=== PATIENT | male | born 1975 | race Caucasian/White ===

== ENCOUNTER 2019-07-14 12:11 | Emergency (ER) | payer BC, OTHER ==
[2019-07-14] MEDS ORDERED: Ketorolac 60 MG/2 ML SDV IM ONE (12:44)
--- NOTE | 2019-07-14 12:52 | EDM.PDOC ---
ED HPI GENERAL MEDICAL PROBLEM - General Chief Complaint: Back Pain or Injury Stated Complaint: LOWER RT BACK PAIN Time Seen by Provider: 07/14/19 12:17 - History of Present Illness INITIAL COMMENTS - FREE TEXT/NARRATIVE: 44-year-old male with no past medical history presents with right lower back pain for 3 weeks. Pain is described as sharp, comes and goes, associated with walking and movement, and radiates to the right foot, described as "lightening bolt" sensation. He has taken OTC Aleve with no relief. Denies fever, chills, urinary or fecal incontinence, trauma, IVDA, recent back surgeries, lower extremity numbness or weakness. ROS: A 10-point review of systems, other than pertinent positives and negatives as stated per HPI, is otherwise negative PHYSICAL EXAM General: AOx4, GCS = 15, mid distress HEENT: dry mucous membrane Neck: supple, no meningismus, no Kernig or Brudzinski Cardiac: S1S2 RRR Respiratory: CTAB, no crackles or rales, no wheezing Abdomen: Soft, nontender, no rebound or guarding, nondistended, no pulsatile mass. Back: nontender to C/T/L-spine. Right lumbar paraspinal tenderness. Positive straight leg raise. Musculoskeletal: NVI distally, no deformity Neuro: No focal deficits. MEDICAL DECISION MAKING: I reviewed the patients past medical records, lab and radiographic findings. I discussed the case with family members. My differential diagnosis included: Low back strain, sciatica. Patient's back pain is suggestive of musculoskeletal strain. There are no complaints of urinary or fecal incontinence, focal numbness or weakness. The patient has a normal gait in the ER. There is no evidence of fever, IV drug use, recent back surgery, or immunocompromised state. I do not suspect caude equine syndrome or cord compression which would warrant further imaging. Right Back Pain Score (Numeric/FACES): 4 - Related Data Allergies Allergy/AdvReac Type Severity Reaction Status Date / Time No Known Allergies Allergy Verified 07/14/19 12:30 Home Meds: Home Meds Cyclobenzaprine [Flexeril] 10 mg PO TID #20 tab 07/14/19 [Rx] Ibuprofen 800 mg PO Q6HR PRN #14 tablet 07/14/19 [Rx] Past Medical History - Past Health History Medical/Surgical History: Denies Medical/Surgical History - Past Surgical History HEENT Surgical History: Reports: Adenoidectomy, Tonsillectomy Other GI Surgeries/Procedures: X2 Hernias surigcally fixed Musculoskeletal Surgical History: Reports: Knee Replacement Social & Family History - Tobacco Use Smoking Status *Q: Current Every Day Smoker Years of Tobacco use: 20 Packs/Tins Daily: 1 - Caffeine Use Caffeine Use: Reports: Coffee, Energy Drinks, Soda, Tea - Recreational Drug Use Recreational Drug Use: No ED ROS GENERAL - Review of Systems Review Of Systems: Comprehensive ROS is negative, except as noted in HPI. (See dictation) ED EXAM,LOWER BACK PAIN/INJURY - Physical Exam Exam: See Below (See dictation) Course - Vital Signs Last Recorded V/S: Last Vital Signs Temp 97.7 F 07/14/19 12:25 Pulse 97 07/14/19 12:25 Resp 17 07/14/19 12:25 BP 113/76 07/14/19 12:25 Pulse Ox 93 L 07/14/19 12:25 - Orders/Labs/Meds Orders: Active Orders 24 hr Category Date Time Status Ketorolac [Toradol] Med 07/14/19 12:44 Once 60 mg IM ONETIME ONE Medication Orders Ketorolac Tromethamine (Toradol) 60 mg IM ONETIME ONE Stop: 07/14/19 12:45 Meds: Medications Generic Name Dose Route Start Last Admin Trade Name Freq PRN Reason Stop Dose Admin Ketorolac Tromethamine 60 mg 07/14/19 12:44 Toradol IM 07/14/19 12:45 ONETIME ONE - Re-Assessments/Exams Free Text/Narrative Re-Assessment/Exam: 07/14/19 12:53 After IM toradol, he improved clinically and is stable for discharge. I performed a repeat examination and the patient has not demonstrated any new abnormal findings. Patient exhibits normal vital signs and has exhibited a normal gait. I advised the patient to return to the ER for reevaluation if symptoms worsened, and to follow up with their PCP within 2-3 days. Departure - Departure Time of Disposition: 12:46 Disposition: Home, Self-Care 01 Condition: Good Clinical Impression: Sciatica - Discharge Information Prescriptions: Ibuprofen 800 mg PO Q6HR PRN #14 tablet PRN Reason: Muscle Spasm Cyclobenzaprine [Flexeril] 10 mg PO TID #20 tab Instructions: Sciatica, [id number] Additional Instructions: The following information is given to patients seen in the emergency department who are being discharged to home. This information is to outline your options for follow-up care. We provide all patients seen in our emergency department with a follow-up referral. The need for follow-up, as well as the timing and circumstances, are variable depending upon the specifics of your emergency department visit. If you don't have a primary care physician on staff, we will provide you with a referral. We always advise you to contact your personal physician following an emergency department visit to inform them of the circumstance of the visit and for follow-up with them and/or the need for any referrals to a consulting specialist. The emergency department will also refer you to a specialist when appropriate. This referral assures that you have the opportunity for follow-up care with a specialist. All of these measure are taken in an effort to provide you with optimal care, which includes your follow-up. Under all circumstances we always encourage you to contact your private physician who remains a resource for coordinating your care. When calling for follow-up care, please make the office aware that this follow-up is from your recent emergency room visit. If for any reason you are refused follow-up, please contact the [facility] Emergency Department at and asked to speak to the emergency department charge nurse. [facility] - Primary Care [address] [place] [id number] [facility] [address] [place] [address] Sepsis Event Note - Evaluation Sepsis Screening Result: No Definite Risk - Focused Exam Vital Signs: Vital Signs Temp Pulse Resp BP Pulse Ox 07/14/19 12:25 97.7 F 97 17 113/76 93 L Date Exam was Performed: 07/14/19 Time Exam was Performed: 12:45 - My Orders Last 24 Hours: My Active Orders 07/14/19 12:44 Ketorolac [Toradol] 60 mg IM ONETIME ONE - Assessment/Plan Last 24 Hours: My Active Orders 07/14/19 12:44 Ketorolac [Toradol] 60 mg IM ONETIME ONE
== END 2019-07-14 13:00 | disposition home or self-care (01) ==
LOC: MW.ED 12:11
DX: M54.41 Lumbago with sciatica, right side (principal); F17.210 Nicotine dependence, cigarettes, uncomplicated
CPT/HCPCS: 96372; 99283; J1885

== ENCOUNTER 2019-09-04 07:58 | Emergency (ER) | payer BC, OTHER ==
--- NOTE | 2019-09-04 08:50 | EDM.PDOC ---
ED HPI GENERAL MEDICAL PROBLEM - General Chief Complaint: General Stated Complaint: SCIATIC NERVE PAIN Time Seen by Provider: 09/04/19 08:44 Source of Information: Reports: Patient History Limitations: Reports: No Limitations - History of Present Illness INITIAL COMMENTS - FREE TEXT/NARRATIVE: 44-year-old male presents with low back pain. Pain is intermittent, gradual onset progressively worsening over the last 3 months. Pain is described as sharp, radiates to the right lower extremity, exacerbated with movement and palpation. He denies fever, chills, urinary or fecal incontinence, IVDA, back surgery, immunocompromise state, lower extremity numbness or weakness. He has been taking Aleve, Tylenol, ibuprofen 800 mg with no relief. He feels like it is coming on with increasing frequency and severity. He currently does not have a primary care doctor. ROS: A 10-point review of systems, other than pertinent positives and negatives as stated per HPI, is otherwise negative PHYSICAL EXAM General: AOx4, GCS = 15, moderate distress HEENT: dry mucous membrane Neck: supple, no meningismus, no Kernig or Brudzinski Cardiac: S1S2 RRR Respiratory: CTAB, no crackles or rales, no wheezing Abdomen: Soft, nontender, no rebound or guarding, nondistended, no pulsatile mass. Back: nontender to C/T/L spine, right lumbar paraspinal ttp/spasm Musculoskeletal: NVI distally, no deformity Neuro: No focal deficits, CN 2 - 12 WNL. MEDICAL DECISION MAKING: I reviewed the patients past medical records, lab and radiographic findings. I discussed the case with family members. My differential diagnosis included: lumbago, sciatica pain Onset: Gradual Right Leg Pain Score (Numeric/FACES): 10 - Related Data Allergies Allergy/AdvReac Type Severity Reaction Status Date / Time cyclobenzaprine Allergy Vomiting Verified 09/04/19 08:28 [From Flexeril] Home Meds: Home Meds Ibuprofen 800 mg PO Q6HR PRN #14 tablet 07/14/19 [Rx] Cyclobenzaprine [Flexeril] 10 mg PO BID #10 tab 09/04/19 [Rx] Ibuprofen 800 mg PO Q6HR PRN 14 Days tablet 09/04/19 [Rx] Past Medical History - Past Health History Medical/Surgical History: Denies Medical/Surgical History - Past Surgical History HEENT Surgical History: Reports: Adenoidectomy, Tonsillectomy Other GI Surgeries/Procedures: X2 Hernias surigcally fixed Musculoskeletal Surgical History: Reports: Knee Replacement Social & Family History - Tobacco Use Smoking Status *Q: Current Every Day Smoker Years of Tobacco use: 30 Packs/Tins Daily: 1 - Caffeine Use Caffeine Use: Reports: None - Recreational Drug Use Recreational Drug Use: No ED ROS GENERAL - Review of Systems Review Of Systems: See Below (see dictation) ED EXAM, GENERAL - Physical Exam Exam: See Below (see dictation) ED GENERAL MEDICAL PROCEDURES - Additional/Other Procedure(s) Other (Free Text) Procedure(s): Trigger point injection 0.5% bupivacaine 10 mL injected into the right lumbar paraspinal region, no complications. Time spent 5 minutes Course - Vital Signs Last Recorded V/S: Last Vital Signs Temp 97.1 F 09/04/19 08:23 Pulse 104 H 09/04/19 08:23 Resp 20 09/04/19 08:23 BP 128/83 09/04/19 08:23 Pulse Ox 100 09/04/19 08:23 - Re-Assessments/Exams Free Text/Narrative Re-Assessment/Exam: 09/04/19 08:55 After treatments and a prolonged observation period in the ER, the patient improved clinically and is stable for discharge. I performed a repeat examination and the patient has not demonstrated any new abnormal findings. Patient exhibits normal vital signs and has exhibited a normal gait. I advised the patient to return to the ER for reevaluation if symptoms worsened, and to follow up with their PCP within 2-3 days. Departure - Departure Time of Disposition: 08:55 Disposition: Home, Self-Care 01 Condition: Good Clinical Impression: Sciatica, Low back pain - Discharge Information *PRESCRIPTION DRUG MONITORING PROGRAM REVIEWED*: Not Applicable *COPY OF PRESCRIPTION DRUG MONITORING REPORT IN PATIENT HUONG: Not Applicable Prescriptions: Ibuprofen 800 mg PO Q6HR PRN 14 Days tablet PRN Reason: Pain (Moderate 4-6) Cyclobenzaprine [Flexeril] 10 mg PO BID #10 tab Instructions: Sciatica, What You Need to Know About Chronic Back Pain, Chronic Back Pain Referrals: PCP,None [Primary Care Provider] - Additional Instructions: The following information is given to patients seen in the emergency department who are being discharged to home. This information is to outline your options for follow-up care. We provide all patients seen in our emergency department with a follow-up referral. The need for follow-up, as well as the timing and circumstances, are variable depending upon the specifics of your emergency department visit. If you don't have a primary care physician on staff, we will provide you with a referral. We always advise you to contact your personal physician following an emergency department visit to inform them of the circumstance of the visit and for follow-up with them and/or the need for any referrals to a consulting specialist. The emergency department will also refer you to a specialist when appropriate. This referral assures that you have the opportunity for follow-up care with a specialist. All of these measure are taken in an effort to provide you with optimal care, which includes your follow-up. Under all circumstances we always encourage you to contact your private physician who remains a resource for coordinating your care. When calling for follow-up care, please make the office aware that this follow-up is from your recent emergency room visit. If for any reason you are refused follow-up, please contact the [facility] Emergency Department at and asked to speak to the emergency department charge nurse. [facility] - Primary Care [address] [place] [id number] [facility] [address] [place] [id number] Sepsis Event Note - Evaluation Sepsis Screening Result: No Definite Risk - Focused Exam Vital Signs: Vital Signs Temp Pulse Resp BP Pulse Ox 09/04/19 08:23 97.1 F 104 H 20 128/83 100 Date Exam was Performed: 09/04/19 Time Exam was Performed: 08:45
[2019-09-04] MEDS ORDERED: Bupivacaine 0.5% 10 ML SDV INJECT ONE (08:53)
== END 2019-09-04 09:30 | disposition home or self-care (01) ==
LOC: MW.ED 07:58
DX: M54.41 Lumbago with sciatica, right side (principal); F17.210 Nicotine dependence, cigarettes, uncomplicated; Z88.8 Allergy status to other drugs, medicaments and biological substances; Z79.899 Other long term (current) drug therapy
CPT/HCPCS: 20552; 99283; J3490; 99282

== ENCOUNTER 2019-10-10 14:32 | Emergency (ER) | payer SELFPAY ==
[2019-10-10] MEDS ORDERED: Ketorolac 60 MG/2 ML SDV IM ONE (14:57)
[2019-10-10] MEDS ORDERED: Diazepam 2 MG Tab PO ONE (14:58)
--- NOTE | 2019-10-10 15:51 | EDM.PDOC ---
ED HPI GENERAL MEDICAL PROBLEM - General Chief Complaint: Back Pain or Injury Stated Complaint: NERVE PAIN RT LEG Time Seen by Provider: 10/10/19 14:34 Source of Information: Reports: Patient History Limitations: Reports: No Limitations - History of Present Illness INITIAL COMMENTS - FREE TEXT/NARRATIVE: Since reporting low back pain. The patient has been seen twice previously for the same complaint in the last 4 months. Once he was treated with Toradol IM and once he was treated with a trigger point injection. On this occasion reports he has "sciatica". Low back pain that radiates to the right SI joint and thigh. Characterizes the pain as a throbbing and shooting that increases with cough, walking, sitting, and standing. At times he states that his foot is numb and swells up but it is not today. He denies back surgery, recent injury, immunocompromise state, fever, chills, loss of bowel or bladder function. Does have some complaint of numbness in his right thigh and a pulling pain in his testicle. right lower back pain Pain Score (Numeric/FACES): 5 - Related Data Allergies Allergy/AdvReac Type Severity Reaction Status Date / Time cyclobenzaprine Allergy Vomiting Verified 10/10/19 14:38 [From Flexeril] Home Meds: Home Meds Ibuprofen 800 mg PO Q6HR PRN #14 tablet 07/14/19 [Rx] Hydrocodone/Acetaminophen [Hydrocodone-Acetamin 5-325 mg] 1 each PO Q4HR PRN #15 tablet 10/10/19 [Rx] diazePAM [Valium] 1 - 2 tab PO BEDTIME PRN #10 tablet 10/10/19 [Rx] Past Medical History - Past Health History Medical/Surgical History: Denies Medical/Surgical History - Infectious Disease History Infectious Disease History: Reports: Chicken Pox - Past Surgical History HEENT Surgical History: Reports: Adenoidectomy, Tonsillectomy Other GI Surgeries/Procedures: X2 Hernias surigcally fixed Musculoskeletal Surgical History: Reports: Knee Replacement Social & Family History - Tobacco Use Smoking Status *Q: Current Every Day Smoker Years of Tobacco use: 20 Packs/Tins Daily: 1 - Caffeine Use Caffeine Use: Reports: Coffee, Energy Drinks, Soda, Tea - Recreational Drug Use Recreational Drug Use: No ED ROS GENERAL - Review of Systems Review Of Systems: Comprehensive ROS is negative, except as noted in HPI. ED EXAM,LOWER BACK PAIN/INJURY - Physical Exam Exam: See Below Exam Limited By: No Limitations General Appearance: Alert, No Apparent Distress Ears: Normal External Exam Nose: Normal Inspection Throat/Mouth: Normal Inspection Head: Atraumatic, Normocephalic Neck: Normal Inspection Respiratory/Chest: No Respiratory Distress, Lungs Clear, Normal Breath Sounds Cardiovascular: Normal Peripheral Pulses, Regular Rate, Rhythm, No Murmur Back Exam: Normal Inspection, Muscle Spasm, Paraspinal Tenderness (Mostly in lumbar area) Extremities: Normal Inspection, Normal Range of Motion, Non-Tender Neurological: Alert, Normal Dorsiflexion, Normal Plantar Flexion, Normal Reflexes DTR - Lower Extremities: 3+: Knee (R), Knee (L) Psychiatric: Anxious Skin Exam: Warm, Dry, Intact, Normal Color, No Rash Lymphatic: No Adenopathy Course - Vital Signs Last Recorded V/S: Last Vital Signs Temp 35.6 C L 10/10/19 14:39 Pulse 91 10/10/19 14:39 Resp 20 10/10/19 14:39 BP 123/78 10/10/19 14:39 Pulse Ox 98 10/10/19 14:39 - Orders/Labs/Meds Meds: Medications Discontinued Medications Generic Name Dose Route Start Last Admin Trade Name Freq PRN Reason Stop Dose Admin Diazepam 2 mg 10/10/19 14:58 10/10/19 15:12 Valium PO 10/10/19 14:59 2 mg ONETIME ONE Administration Ketorolac Tromethamine 60 mg 10/10/19 14:57 10/10/19 15:09 Toradol IM 10/10/19 14:58 60 mg ONETIME ONE Administration Orphenadrine Citrate 60 mg 10/10/19 14:57 10/10/19 15:11 Norflex IM 10/10/19 14:58 60 mg ONETIME ONE Administration - Re-Assessments/Exams Free Text/Narrative Re-Assessment/Exam: 10/10/19 15:54 Patient is currently sleeping quietly without complaint. Departure - Departure Time of Disposition: 15:56 Disposition: Home, Self-Care 01 Condition: Good Clinical Impression: Sciatica Qualifiers: Laterality: right Qualified Code(s): M54.31 - Sciatica, right side - Discharge Information Prescriptions: Hydrocodone/Acetaminophen [Hydrocodone-Acetamin 5-325 mg] 1 each PO Q4HR PRN #15 tablet PRN Reason: Pain (Severe 7-10) diazePAM [Valium] 1 - 2 tab PO BEDTIME PRN #10 tablet PRN Reason: Sleep Instructions: Radicular Pain Referrals: PCP,None [Primary Care Provider] - [facility] [Outside] [facility] [Outside] Additional Instructions: The following information is given to patients seen in the emergency department who are being discharged to home. This information is to outline your options for follow-up care. We provide all patients seen in our emergency department with a follow-up referral. The need for follow-up, as well as the timing and circumstances, are variable depending upon the specifics of your emergency department visit. If you don't have a primary care physician on staff, we will provide you with a referral. We always advise you to contact your personal physician following an emergency department visit to inform them of the circumstance of the visit and for follow-up with them and/or the need for any referrals to a consulting specialist. The emergency department will also refer you to a specialist when appropriate. This referral assures that you have the opportunity for follow-up care with a specialist. All of these measure are taken in an effort to provide you with optimal care, which includes your follow-up. Under all circumstances we always encourage you to contact your private physician who remains a resource for coordinating your care. When calling for follow-up care, please make the office aware that this follow-up is from your recent emergency room visit. If for any reason you are refused follow-up, please contact the [facility] Emergency Department at and asked to speak to the emergency department charge nurse. 1. Valium 1-2 tabs at bedtime as needed for sleep and relaxation. No driving or operating machinery. Do NOT take within 4 hours of the hydrocodone. 2. Hydrocodone 5 mg every 4 hours as needed for pain. No driving or operating machinery. Do NOT take within 4 hours of the valium. 3. You MUST follow-up in primary care for definitive management or these episodes will continue. You need an MRI and referral physical therapy, to pain management and/or neurosurgery for further evaluation and treatment. 4. Return promptly for incontinence of bowel or bladder, numbness or weakness in the leg. Sepsis Event Note (ED) - Evaluation Sepsis Screening Result: No Definite Risk - Focused Exam Vital Signs: Vital Signs Temp Pulse Resp BP Pulse Ox 10/10/19 14:39 35.6 C L 91 20 123/78 98
== END 2019-10-10 16:17 | disposition home or self-care (01) ==
LOC: MW.ED 14:32
DX: M54.41 Lumbago with sciatica, right side (principal); F17.210 Nicotine dependence, cigarettes, uncomplicated; Z88.8 Allergy status to other drugs, medicaments and biological substances
CPT/HCPCS: 96372; 99283; A9270; J1885; J2360

== ENCOUNTER 2019-10-24 14:00 | Emergency (ER) | payer MEDICAID ==
[2019-10-24] MEDS ORDERED: Acetaminophen/oxyCODONE 325-5 MG Tab PO ONE (14:21)
[2019-10-24] MEDS ORDERED: Lidocaine 5% 700 MG Patch TOP ONE (14:21)
[2019-10-24] MEDS ORDERED: Ibuprofen 400 MG Tab PO ONE (14:21)
--- NOTE | 2019-10-24 15:18 | EDM.PDOC ---
<Fuentes Sam - Last Filed: 10/24/19 20:16> ED HPI GENERAL MEDICAL PROBLEM - General Chief Complaint: Back Pain or Injury Stated Complaint: NUMB FROM HIPS DOWN Time Seen by Provider: 10/24/19 14:05 - Related Data Allergies Allergy/AdvReac Type Severity Reaction Status Date / Time cyclobenzaprine Allergy Vomiting Verified 10/24/19 14:10 [From Flexeril] Home Meds: Home Meds Ibuprofen 800 mg PO Q6HR PRN #14 tablet 07/14/19 [Rx] Hydrocodone/Acetaminophen [Hydrocodone-Acetamin 5-325 mg] 1 each PO Q4HR PRN #15 tablet 10/10/19 [Rx] diazePAM [Valium] 1 - 2 tab PO BEDTIME PRN #10 tablet 10/10/19 [Rx] Ibuprofen 600 mg PO Q6HR PRN #30 tablet 10/24/19 [Rx] traMADol [Ultram] 50 mg PO Q6H PRN #12 tab 10/24/19 [Rx] Course - Re-Assessments/Exams Free Text/Narrative Re-Assessment/Exam: 10/24/19 20:16 care signed out to me at 7 PM: Patient seen and evaluated by me. Patient currently is resting comfortably in bed and is sleeping. Patient reports he feels much better after the medication that he is received. We have obtained the patient's MRI report. Impression: 1. Previous disc protrusion at L4-L5 on CT study does not appear as prominent on the MRI. Left L4 nerve root appears to exit without definite compromise. 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 2. Broad-based disc bulge to the left side at L5-S1 with small annular tear. This is in good location to cause slight compromise upon the left S1 nerve root. Please correlate if patient is symptomatic to the nerve root. 3. Other minimal degenerative changes as noted above. Patient's exam reveals no tenderness at his lumbar spine. Patient reports tenderness at his right buttock and lower region. This appears to be more consistent with sciatica nerve pain rather than a lumbar spine issue. Patient in the ED is neurovascularly intact and has been able to ambulate without any neurological deficit. Patient does appear to be uncomfortable and walks slowly when he does ambulate. Patient is neurologically intact otherwise. There does not appear to be any definite cause to his pain identified on the MRI. At this time, patient does not meet inpatient level of care and will be discharged home with Ultram and Flexeril. Patient reports to me that he is homeless and has not been able to seek assistance with physical therapy since his pain began approximately 4 months ago. Patient reports that this is the identical pain that has had for the last 4-month. Patient reports that his pain started while he was working in the [employer]. Patient reports currently he sleeps in his truck/trailer and thinks it is likely contributing to his discomfort. Patient will be assisted with Ultram as well as cyclobenzaprine as an outpatient and will also be given ibuprofen to assist him with his pain. Reassessment at the time of disposition demonstrates that the patient is in no acute distress. The patient has remained stable throughout the entire ED visit and is without objective evidence for acute process requiring urgent intervention or hospitalization. The patient is stable for discharge, counseling is provided as documented above, discussed symptomatic treatment and specific conditions for return. I have spoken with the patient/caregive and discussed todays findings, in ad dition to providing specific details for the plan of care. Questions are answered and there is agreement with the plan. Departure - Departure Time of Disposition: 20:20 Disposition: Home, Self-Care 01 Condition: Good Clinical Impression: Sciatica Qualifiers: Laterality: right Qualified Code(s): M54.31 - Sciatica, right side - Discharge Information Prescriptions: Ibuprofen 600 mg PO Q6HR PRN #30 tablet PRN Reason: Pain traMADol [Ultram] 50 mg PO Q6H PRN #12 tab PRN Reason: Pain Instructions: Sciatica Referrals: PCP,None [Primary Care Provider] - Forms: ED Department Discharge Additional Instructions: The following information is given to patients seen in the emergency department who are being discharged to home. This information is to outline your options for follow-up care. We provide all patients seen in our emergency department with a follow-up referral. The need for follow-up, as well as the timing and circumstances, are variable depending upon the specifics of your emergency department visit. If you don't have a primary care physician on staff, we will provide you with a referral. We always advise you to contact your personal physician following an emergency department visit to inform them of the circumstance of the visit and for follow-up with them and/or the need for any referrals to a consulting specialist. The emergency department will also refer you to a specialist when appropriate. This referral assures that you have the opportunity for follow-up care with a specialist. All of these measure are taken in an effort to provide you with optimal care, which includes your follow-up. Under all circumstances we always encourage you to contact your private physician who remains a resource for coordinating your care. When calling for follow-up care, please make the office aware that this follow-up is from your recent emergency room visit. If for any reason you are refused follow-up, please contact the [facility] Emergency Department at and asked to speak to the emergency department charge nurse. <Kieran Scanlon - Last Filed: 10/24/19 22:44> ED HPI GENERAL MEDICAL PROBLEM - General Source of Information: Reports: Patient, Old Records History Limitations: Reports: No Limitations - History of Present Illness INITIAL COMMENTS - FREE TEXT/NARRATIVE: 43-year-old male with no past medical history presenting with low back pain. Reports a 4-day history of pain to the right side of his lumbar back, radiating to the posterolateral right buttock and right thigh. Patient has had multiple emergency department presentations over the last several months for pain in this location, this pattern and pain seems typical compared to prior visits. Patient denies any acute injury, does complain of pain and numbness to the right buttock and the right posterolateral thigh. Denies any lower extremity motor weakness, fecal or urinary retention or incontinence, history of autoimmune disease, saddle anesthesia, fever, recent steroid use or history of malignancy. Remote history of IV drug use, last use reported to be 4 years ago. right lower back Pain Score (Numeric/FACES): 8 Past Medical History - Past Health History Medical/Surgical History: Denies Medical/Surgical History - Infectious Disease History Infectious Disease History: Reports: Chicken Pox Other Infectious Disease History: IV drug use - last 2015. - Past Surgical History HEENT Surgical History: Reports: Adenoidectomy, Tonsillectomy Other GI Surgeries/Procedures: X2 Hernias surigcally fixed Musculoskeletal Surgical History: Reports: Knee Replacement Social & Family History - Family History Family Medical History: Noncontributory - Tobacco Use Smoking Status *Q: Current Every Day Smoker Years of Tobacco use: 20 Packs/Tins Daily: 1 - Caffeine Use Caffeine Use: Reports: Coffee, Energy Drinks, Soda, Tea - Recreational Drug Use Recreational Drug Use: Yes Drug Use in Last 12 Months: No Other Recreational Drug Type: IV drug use last use 2015. ED ROS GENERAL - Review of Systems Review Of Systems: See Below Constitutional: Denies: Fever, Chills HEENT: Reports: No Symptoms Respiratory: Denies: Shortness of Breath Cardiovascular: Denies: Chest Pain Endocrine: Denies: Polyuria GI/Abdominal: Denies: Abdominal Pain, Nausea, Vomiting : Denies: Discharge, Dysuria, Flank Pain, Hematuria Musculoskeletal: Reports: Back Pain, Leg Pain Skin: Denies: Rash Neurological: Reports: Numbness. Denies: Confusion, Dizziness, Headache, Tingling, Weakness ED EXAM,LOWER BACK PAIN/INJURY - Physical Exam Exam: See Below Course - Vital Signs Text/Narrative:: Differential diagnosis includes but is not limited to: abdominal aortic aneurysm rupture, pulmonary embolism, cauda equina syndrome, epidural abscess, lumbar osteomyelitis, lumbar fracture or dislocation, nephrolithiasis, pyelonephritis, hydronephrosis, musculoskeletal pain, and many others. Severe back pain on arrival. Initially attempted symptomatic control with ibuprofen, Percocet, lidocaine patch. Exam very limited due to pain. Weakness with R ankle plantarflexion. Unable to void for urinalysis. IV access estab lished, given IV fentanyl x2. Continued to have difficulty attempting strength testing due to severe pain. MR imaging obtained of thoracic and lumbar spine - radiology read pending. 3:42 PM: Patient continues to complain of severe right-sided low back pain. He has weakness with attempts at right ankle dorsiflexion and also has weakness with right thigh extension. He complains of subjective numbness to the bilateral right leg and the lateral right thigh. He is unable to provide a urine sample so far. Awaiting MR imaging. 5:10 PM: Discussed with the patient's nurse about lab delay. Labs were ordered but were not drawn and sent to the laboratory when the peripheral IV was established. Patient is currently in the radiology suite undergoing MR imaging and labs will be drawn when he returns to the emergency department. At time of shift change, labs show no significant derangements. ESR negative, UA without blood or evidence of infection. Still awaiting radiology reads of MR series. Signed out in-person to Dr. Sam awaiting MR reads and ongoing symptom control. Refer to his note for the disposition. Last Recorded V/S: Last Vital Signs Temp 35.6 C L 10/24/19 20:35 Pulse 50 L 10/24/19 20:35 Resp 17 10/24/19 20:35 BP 125/68 10/24/19 20:35 Pulse Ox 98 10/24/19 20:35 - Orders/Labs/Meds Orders: Active Orders 24 hr Category Date Time Status Pulse Oximetry [RC] ASDIRECTED Care 10/24/19 15:43 Active Saline Lock Insert [OM.PC] Stat Oth 10/24/19 15:43 Ordered Labs: Laboratory Tests 10/24/19 10/24/19 10/24/19 Range/Units 18:31 18:31 18:42 WBC 10.43 (4.0-11.0) K/uL RBC 4.56 (4.50-5.90) M/uL Hgb 14.2 (13.0-17.0) g/dL Hct 42.3 (38.0-50.0) % MCV 92.8 (80.0-98.0) fL MCH 31.1 (27.0-32.0) pg MCHC 33.6 (31.0-37.0) g/dL RDW Std Deviation 45.5 (28.0-62.0) fl RDW Coeff of Migd[place] 13 (11.0-15.0) % Plt Count 348 (150-400) K/uL MPV 8.90 (7.40-12.00) fL Neut % (Auto) 60.5 (48.0-80.0) % Lymph % (Auto) 31.7 (16.0-40.0) % Long % (Auto) 5.5 (0.0-15.0) % Eos % (Auto) 2.1 (0.0-7.0) % Baso % (Auto) 0.2 (0.0-1.5) % Neut # (Auto) 6.3 H (1.4-5.7) K/uL Lymph # (Auto) 3.3 H (0.6-2.4) K/uL Long # (Auto) 0.6 (0.0-0.8) K/uL Eos # (Auto) 0.2 (0.0-0.7) K/uL Baso # (Auto) 0.0 (0.0-0.1) K/uL Nucleated RBC % 0.0 /100WBC Nucleated RBCs # 0 K/uL ESR (0-14) mm/hr Sodium 141 (136-148) mmol/L Potassium 3.8 (3.5-5.1) mmol/L Chloride 106 (98-107) mmol/L Carbon Dioxide 25.4 (21.0-32.0) mmol/L BUN 12 (7.0-18.0) mg/dL Creatinine 1.4 H (0.8-1.3) mg/dL Est Cr Clr Drug Dosing 68.03 mL/min Estimated GFR (MDRD) 55.3 ml/min Glucose 99 (74-106) mg/dL Calcium 9.0 (8.5-10.1) mg/dL C-Reactive Protein < 0.20 (0.00-0.90) mg/dL Urine Color YELLOW Urine Appearance CLEAR Urine pH 6.5 (5.0-8.0) Ur Specific [place] 1.025 (1.001-1.035) Urine Protein NEGATIVE (NEGATIVE) mg/dL Urine Glucose (UA) NEGATIVE (NEGATIVE) mg/dL Urine Ketones TRACE H (NEGATIVE) mg/dL Urine Occult Blood NEGATIVE (NEGATIVE) Urine Nitrite NEGATIVE (NEGATIVE) Urine Bilirubin NEGATIVE (NEGATIVE) Urine Urobilinogen 1.0 (<2.0) EU/dL Ur Leukocyte Esterase NEGATIVE (NEGATIVE) 10/24/19 Range/Units 19:10 WBC (4.0-11.0) K/uL RBC (4.50-5.90) M/uL Hgb (13.0-17.0) g/dL Hct (38.0-50.0) % MCV (80.0-98.0) fL MCH (27.0-32.0) pg MCHC (31.0-37.0) g/dL RDW Std Deviation (28.0-62.0) fl RDW Coeff of Migdalia (11.0-15.0) % Plt Count (150-400) K/uL MPV (7.40-12.00) fL Neut % (Auto) (48.0-80.0) % Lymph % (Auto) (16.0-40.0) % Long % (Auto) (0.0-15.0) % Eos % (Auto) (0.0-7.0) % Baso % (Auto) (0.0-1.5) % Neut # (Auto) (1.4-5.7) K/uL Lymph # (Auto) (0.6-2.4) K/uL Long # (Auto) (0.0-0.8) K/uL Eos # (Auto) (0.0-0.7) K/uL Baso # (Auto) (0.0-0.1) K/uL Nucleated RBC % /100WBC Nucleated RBCs # K/uL ESR 6 (0-14) mm/hr Sodium (136-148) mmol/L Potassium (3.5-5.1) mmol/L Chloride (98-107) mmol/L Carbon Dioxide (21.0-32.0) mmol/L BUN (7.0-18.0) mg/dL Creatinine (0.8-1.3) mg/dL Est Cr Clr Drug Dosing mL/min Estimated GFR (MDRD) ml/min Glucose (74-106) mg/dL Calcium (8.5-10.1) mg/dL C-Reactive Protein (0.00-0.90) mg/dL Urine Color Urine Appearance Urine pH (5.0-8.0) Ur Specific [place] (1.001-1.035) Urine Protein (NEGATIVE) mg/dL Urine Glucose (UA) (NEGATIVE) mg/dL Urine Ketones (NEGATIVE) mg/dL Urine Occult Blood (NEGATIVE) Urine Nitrite (NEGATIVE) Urine Bilirubin (NEGATIVE) Urine Urobilinogen (<2.0) EU/dL Ur Leukocyte Esterase (NEGATIVE) Meds: Medications Discontinued Medications Generic Name Dose Route Start Last Admin Trade Name Freq PRN Reason Stop Dose Admin Fentanyl 100 mcg 10/24/19 15:43 10/24/19 15:59 Fentanyl IVPUSH 10/24/19 15:44 100 mcg ONETIME ONE Administration Fentanyl 100 mcg 10/24/19 17:03 10/24/19 17:11 Fentanyl IVPUSH 10/24/19 17:04 100 mcg ONETIME ONE Administration Ibuprofen 400 mg 10/24/19 14:21 10/24/19 14:25 Motrin PO 10/24/19 14:22 400 mg ONETIME ONE Administration Lidocaine 700 mg 10/24/19 14:21 10/24/19 14:26 Lidoderm 5% TOP 10/24/19 14:22 700 mg ONETIME ONE Administration Lorazepam 1 mg 10/24/19 17:33 10/24/19 18:40 Ativan IVPUSH 10/24/19 17:34 1 mg ONETIME ONE Administration Morphine Sulfate 4 mg 10/24/19 18:38 10/24/19 18:45 Morphine IVPUSH 10/24/19 18:39 Not Given ONETIME ONE Oxycodone/Acetaminophen 2 tab 10/24/19 14:21 10/24/19 14:26 Percocet 325-5 Mg PO 10/24/19 14:22 2 tab ONETIME ONE Administration Sodium Chloride 10 ml 10/24/19 15:43 10/24/19 15:59 Saline Flush FLUSH 10 ml ASDIRECTED PRN Administration Keep Vein Open Sodium Chloride 2.5 ml 10/24/19 15:43 10/24/19 15:59 Saline Flush FLUSH 2.5 ml ASDIRECTED PRN Administration Keep Vein Open Sepsis Event Note (ED) - Evaluation Sepsis Screening Result: No Definite Risk - Focused Exam Vital Signs: Vital Signs Temp Pulse Resp BP Pulse Ox 10/24/19 20:35 35.6 C L 50 L 17 125/68 98 10/24/19 18:45 56 L 15 125/68 92 L 10/24/19 16:41 55 L 15 110/68 95 10/24/19 15:54 52 L 16 126/92 H 93 L 10/24/19 14:07 35.1 C L 96 24 H 122/98 H 98 - My Orders Last 24 Hours: My Active Orders 10/24/19 15:43 Pulse Oximetry [RC] ASDIRECTED Saline Lock Insert [OM.PC] Stat - Assessment/Plan Last 24 Hours: My Active Orders 10/24/19 15:43 Pulse Oximetry [RC] ASDIRECTED Saline Lock Insert [OM.PC] Stat
[2019-10-24] MEDS ORDERED: fentaNYL 50 MCG/ML SDV IVPUSH ONE ×2 (15:43→17:03)
[2019-10-24] MEDS ORDERED: Sodium Chloride 0.9% 2.5 ML Syringe FLUSH PRN (15:43)
[2019-10-24] MEDS ORDERED: Sodium Chloride 0.9% 10 ML Syringe FLUSH PRN (15:43)
[2019-10-24] MEDS ORDERED: LORazepam 2 MG/ML SDV IVPUSH ONE (17:33)
[2019-10-24] MEDS ORDERED: Morphine 4 MG/ML Syringe IVPUSH ONE (18:38)
[2019-10-24 18:52] LABS: BLOOD UREA NITROGEN,BUN 12 mg/dL (7.0-18.0); CARBON DIOXIDE,CO2 25.4 mmol/L (21.0-32.0); CHLORIDE,CL 106 mmol/L (98-107); GLUCOSE RANDOM 99 mg/dL (74-106); POTASSIUM,K 3.8 mmol/L (3.5-5.1); SODIUM,NA 141 mmol/L (136-148)
--- NOTE | 2019-10-24 19:29 | MR ---
Indication: Low back pain. Technique: Performed without IV contrast. Comparison: None available. Findings: Alignment is anatomic. No evidence for recent fracture, worrisome bone lesion or pars defect. No high grade central canal stenosis. The conus and cauda equina are unremarkable, with the tip of the cord at the L1 level. No paraspinal pathology is identified. T12-L1: The disc is negative. The foramina are patent. L1-2, L2-3 and L3-4: The discs and facets are negative. The foramina are patent. L4-5: Shallow central and left central disc extrusion, abutting the left L5 root as it exits the sac. Mild generalized disc degeneration. Minor facet osteoarthritis. Low-grade foraminal narrowing. L5-S1: Moderately large 11 mm extrusion migrating just below the interspace level and frankly impinging on the right S1 nerve root. Moderate right and mild left facet osteoarthritis. Some interbody spurring. Baseline moderate narrowing of the right subarticular recess. Moderate foraminal narrowing. Impression: 1. At L5-S1 there is a moderate sized right subarticular disc extrusion, causing klever impingement on the right S1 nerve root. 2. At L4-5 there is a shallow central and left central disc herniation, abutting the left L5 root as it exits the sac. Dictated by Duy Zarco MD @ Oct 25 2019 11:18AM Signed by Dr. Duy Zarco @ Oct 25 2019 11:22AM
--- NOTE | 2019-10-24 19:35 | MR ---
Indication: Mid back pain. Technique: Performed without IV contrast. Comparison: None available. Findings: Mildly exaggerated thoracic kyphosis. Slight chronic loss of anterior vertebral body height at a few thoracic levels. No evidence for stress reaction, recent fracture or worrisome bone lesion. A moderate sized chronic Schmorl`s node intention is seen along the superior endplate of the T12 vertebral body. Multilevel low-grade disc degenerative changes. At T7-8 there is a moderate-sized focal left central disc extrusion which slightly deforms the ventral surface of the cord. At T8-9 there is a small central disc herniation which abuts the ventral surface of the cord. At T6-7 and T11-12 there is prominent facet joint hypertrophy/ligamentous calcification. The central canal is patent, with no high-grade stenosis. No intrinsic thoracic cord abnormalities identified. The thoracic neural foramina are patent. The paravertebral soft tissues are grossly negative. Impression: 1. At T7-8 there is a moderate-sized focal left central extrusion which slightly indents the ventral surface of the cord. 2. At T8-9 there is a small central disc herniation abutting the ventral cord surface. 3. No thoracic cord signal abnormalities are identified. No klever high-grade central canal stenosis. 4. Mild exaggerated kyphosis. Dictated by Duy Zarco MD @ Oct 25 2019 11:10AM Signed by Dr. Duy Zarco @ Oct 25 2019 11:18AM
== END 2019-10-24 20:36 | disposition home or self-care (01) ==
LOC: MW.ED 14:00
DX: M54.41 Lumbago with sciatica, right side (principal); F17.210 Nicotine dependence, cigarettes, uncomplicated; Z88.8 Allergy status to other drugs, medicaments and biological substances
CPT/HCPCS: 36415; 72146; 72148; 80048; 81003; 85025; 85652; 86140; 96374; 96375; 96376; 99284; A9270; J2060; J3010; 99283

== ENCOUNTER 2019-10-26 07:21 | Observation (INO) | payer MEDICAID ==
[2019-10-26] MEDS ORDERED: Acetaminophen/oxyCODONE 325-5 MG Tab PO ONE (07:58)
[2019-10-26] MEDS ORDERED: Lidocaine 5% 700 MG Patch TOP ONE (07:58)
[2019-10-26] MEDS ORDERED: Ketorolac 30 MG/ML SDV IM ONE (07:58)
[2019-10-26] MEDS ORDERED: Sodium Chloride 0.9% 2.5 ML Syringe FLUSH PRN ×2 (10:00→11:53)
[2019-10-26] MEDS ORDERED: Morphine 4 MG/ML Syringe IM ONE (10:00)
[2019-10-26] MEDS ORDERED: Sodium Chloride 0.9% 10 ML Syringe FLUSH PRN (10:00)
[2019-10-26] MEDS ORDERED: Lactated Ringers 1,000 ML IV ONE ×2 (10:01→11:57)
[2019-10-26] MEDS ORDERED: Morphine 4 MG/ML Syringe IVPUSH ONE (10:08)
[2019-10-26 11:29] LABS: CARBON DIOXIDE,CO2 25.8 mmol/L (21.0-32.0)
[2019-10-26] MEDS ORDERED: Ondansetron 4 MG/2 ML SDV IVPUSH PRN (11:46)
[2019-10-26] MEDS ORDERED: Dexamethasone 10 MG/ML SDV IVPUSH ONE (11:51)
[2019-10-26] MEDS ORDERED: Pantoprazole 40 MG in Sodium Chloride 0.9% 10 ML IV ONE (11:52)
[2019-10-26] MEDS ORDERED: Polyethylene Glycol 3350 Powder 17 GM Packet PO PRN (11:53)
[2019-10-26] MEDS ORDERED: Bisacodyl 10 MG Supp RECTAL PRN (11:53)
[2019-10-26] MEDS: Docusate Sodium 100 MG Cap PO SCH ×2 (12:39→20:11)
[2019-10-26] MEDS: Enoxaparin 40 MG/0.4 ML Syringe SUBCUT SCH (12:39)
[2019-10-26] MEDS ORDERED: Sodium Chloride 0.9% 1,000 ML IV SCH (12:45)
[2019-10-26] MEDS: Ketorolac 15 MG/ML SDV IVPUSH SCH ×2 (13:18→20:09)
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
--- NOTE | 2019-10-26 14:37 | EDM.PDOC ---
ED HPI GENERAL MEDICAL PROBLEM - General Chief Complaint: Back Pain or Injury Stated Complaint: BACK PAIN Time Seen by Provider: 10/26/19 07:24 Source of Information: Reports: Patient, Old Records History Limitations: Reports: No Limitations - History of Present Illness INITIAL COMMENTS - FREE TEXT/NARRATIVE: 44-year-old male with a past medical history of sciatica, remote history of IV drug use 4 years ago presenting with severe low back pain. Patient was seen by myself on 10/24/2019 with right-sided low back pain radiating to the posterolateral right thigh along with subjective lower extremity weakness. At that visit, the patient required multiple doses of IV opioids, benzodiazepines. He did undergo MR imaging of the thoracic and lumbar spine which showed no acute pathology to warrant neurosurgical evaluation or intervention, did demonstrate moderate sized focal left central extrusion slightly indenting the ventral surface of the spinal cord. Multiple visits to the emergency department in the past few months for sciatica and has not followed up with a primary medical physician, spine surgeon, or car painter. Patient was discharged home with pain medications. He presents back to the emergency department today with identical complaints, right-sided low back pain radiating to the right lower extremity. Denies any change in character, states the pain has recurred and is severe. Denies any urinary or fecal retention or incontinence, fever, history of trauma, autoimmune disease, recent steroid use, history of malignancy, or immunosuppression. ROS: A 10-point review of systems was negative, except as noted in the HPI (or in the ROS section of this note). Past medical history: Reviewed, no additional pertinent history. Surgical history: Reviewed in system, no additional pertinent history. Social history: Reviewed in system, no additional pertinent history. Family history: Reviewed in system, no additional pertinent history. PHYSICAL EXAM Vital signs reviewed. Nursing notes reviewed. Constitutional: Awake, alert, non-distressed. Head: Normocephalic, atraumatic. Eyes: EOMI, conjunctiva normal, no discharge, no scleral icterus. Ears, Nose, Throat: External ears and nose normal, moist oral mucosa. Cardiovascular: 2+ radial pulse, capillary refill less than 2 seconds. Pulmonary: normal work of breathing, no accessory muscle use. Abdomen/GI: Soft, nontender, nondistended, no guarding or rigidity, no masses. Musculoskeletal: No deformities. Moderate tenderness to palpation to the right side of the lumbar spine. Integumentary: Appropriate color for ethnicity, warm, dry, no pallor or jaundice, no rash. Neurologic: Alert, answering questions appropriately, normal speech, no facial droop, moving all extremities well. 5/5 strength in bilateral lower extremities, sensation intact to light touch in the bilateral lower extremities. Psychiatric: Appropriate mood and affect, normal thought process. Lower Back Pain Score (Numeric/FACES): 10 - Related Data Allergies Allergy/AdvReac Type Severity Reaction Status Date / Time cyclobenzaprine Allergy Vomiting Verified 10/26/19 12:23 [From Flexeril] Home Meds: Home Meds Ibuprofen 800 mg PO Q6HR PRN #14 tablet 07/14/19 [Rx] Hydrocodone/Acetaminophen [Hydrocodone-Acetamin 5-325 mg] 1 each PO Q4HR PRN #15 tablet 10/10/19 [Rx] diazePAM [Valium] 1 - 2 tab PO BEDTIME PRN #10 tablet 10/10/19 [Rx] Ibuprofen 600 mg PO Q6HR PRN #30 tablet 10/24/19 [Rx] traMADol [Ultram] 50 mg PO Q6H PRN #12 tab 10/24/19 [Rx] Past Medical History - Past Health History Medical/Surgical History: Denies Medical/Surgical History Cardiovascular History: Reports: None. Denies: Afib, Blood Clots/VTE/DVT, CAD, High Cholesterol, Hypertension Respiratory History: Reports: None. Denies: Asthma, COPD Genitourinary History: Reports: None Neurological History: Reports: None. Denies: CVA, TIA Psychiatric History: Reports: None Endocrine/Metabolic History: Reports: None. Denies: Diabetes, Type II Hematologic History: Reports: None Immunologic History: Reports: None Oncologic (Cancer) History: Reports: None Dermatologic History: Reports: None - Infectious Disease History Infectious Disease History: Reports: None Other Infectious Disease History: IV drug use - last 2015. - Past Surgical History Head Surgeries/Procedures: Reports: None HEENT Surgical History: Reports: Adenoidectomy, Tonsillectomy Other GI Surgeries/Procedures: X2 Hernias surigcally fixed Musculoskeletal Surgical History: Reports: Knee Replacement Social & Family History - Family History Family Medical History: Noncontributory - Tobacco Use Smoking Status *Q: Current Every Day Smoker Years of Tobacco use: 31 Packs/Tins Daily: 1 - Caffeine Use Caffeine Use: Reports: Coffee, Energy Drinks, Soda, Tea - Recreational Drug Use Recreational Drug Use: No - Living Situation & Occupation Living situation: Reports: ED ROS GENERAL - Review of Systems Review Of Systems: See Below ED EXAM,LOWER BACK PAIN/INJURY - Physical Exam Exam: See Below Course - Vital Signs Text/Narrative:: 44-year-old male with severe, acute on chronic right-sided low back pain, consistent with sciatica. Recent ED visit with extensive work-up including MR imaging of the thoracic and lumbar spine, urinalysis, blood work including inflammatory markers. Low suspicion for AAA given negative recent imaging. Low suspicion for spinal epidural abscess given recent negative work-up. No history of trauma. No urinary symptoms, urinalysis at last visit did not suggest infection and symptoms are essentially unchanged. Suspect worsening of known sciatica and did not see an indication to repeat imaging at today's visit. We did obtain basic labs which show slight renal insufficiency. Given multiple rounds of pain medication without relief. Given refractory pain, will favor admission to observation status for ongoing pain control and PT evaluation. I spoke with Dr. Forrester the hospitalist who agrees to admit. Last Recorded V/S: Last Vital Signs Temp 35.6 C L 10/26/19 07:37 Pulse 52 L 10/26/19 11:50 Resp 16 10/26/19 11:50 BP 104/77 10/26/19 11:50 Pulse Ox 97 10/26/19 11:50 - Orders/Labs/Meds Orders: Active Orders 24 hr Category Date Time Status Saline Lock Insert [OM.PC] Stat Oth 10/26/19 10:00 Ordered Medication Orders Acetaminophen (Tylenol) 650 mg PO Q4H PRN PRN Reason: Pain (Mild 1-3)/fever Bisacodyl (Dulcolax) 10 mg RECTAL DAILY PRN PRN Reason: If no BM after 2 days Docusate Sodium (Colace) 100 mg PO BID [facility] Last Admin: 10/26/19 12:39 Dose: 100 mg Documented by: CHERYLHR Enoxaparin Sodium (Lovenox) 40 mg SUBCUT Q24H [facility] Last Admin: 10/26/19 12:39 Dose: 40 mg Documented by: CHERYLHR Sodium Chloride (Normal Saline) 1,000 mls @ 125 mls/hr IV Q8H [facility] Stop: 10/26/19 20:44 Last Admin: 10/26/19 14:06 Dose: 125 mls/hr Documented by: JOSE ARMANDO Ketorolac Tromethamine (Toradol) 15 mg IVPUSH Q6H [facility] Last Admin: 10/26/19 13:18 Dose: 15 mg Documented by: CHERYLHR Morphine Sulfate (Morphine) 2 mg IVPUSH Q4H PRN PRN Reason: Severe pain Ondansetron HCl (Zofran) 4 mg IVPUSH Q4H PRN PRN Reason: Nausea Oxycodone HCl (Oxycodone) 5 mg PO Q4H PRN PRN Reason: Pain Pantoprazole Sodium (Protonix) 40 mg PO ACBREAKFAST [facility] Polyethylene Glycol (Miralax) 17 gm PO BEDTIME PRN PRN Reason: Constipation Prednisone (Prednisone) 40 mg PO WITHBREAKFAST [facility] Sodium Chloride (Saline Flush) 2.5 ml FLUSH ASDIRECTED PRN PRN Reason: IV Use Meds: Medications Generic Name Dose Route Start Last Admin Trade Name Freq PRN Reason Stop Dose Admin Acetaminophen 650 mg 10/26/19 11:46 Tylenol PO Q4H PRN Pain (Mild 1-3)/fever Bisacodyl 10 mg 10/26/19 11:53 Dulcolax RECTAL DAILY PRN If no BM after 2 days Docusate Sodium 100 mg 10/26/19 12:00 10/26/19 12:39 Colace PO 100 mg BID [facility] Administration Enoxaparin Sodium 40 mg 10/26/19 12:00 10/26/19 12:39 Lovenox SUBCUT 40 mg Q24H [facility] Administration Sodium Chloride 1,000 mls @ 125 mls/hr 10/26/19 12:45 10/26/19 14:06 Normal Saline IV 10/26/19 20:44 125 mls/hr Q8H [facility] Administration Ketorolac Tromethamine 15 mg 10/26/19 14:00 10/26/19 13:18 Toradol IVPUSH 15 mg Q6H [facility] Administration Morphine Sulfate 2 mg 10/26/19 12:31 Morphine IVPUSH Q4H PRN Severe pain Ondansetron HCl 4 mg 10/26/19 11:46 Zofran IVPUSH Q4H PRN Nausea Oxycodone HCl 5 mg 10/26/19 12:30 Oxycodone PO Q4H PRN Pain Pantoprazole Sodium 40 mg 10/27/19 07:30 Protonix PO ACBREAKFAST [facility] Polyethylene Glycol 17 gm 10/26/19 11:53 Miralax PO BEDTIME PRN Constipation Prednisone 40 mg 10/27/19 08:00 Prednisone PO WITHBREAKFAST [facility] Sodium Chloride 2.5 ml 10/26/19 11:53 Saline Flush FLUSH ASDIRECTED PRN IV Use Discontinued Medications Generic Name Dose Route Start Last Admin Trade Name Freq PRN Reason Stop Dose Admin Dexamethasone 8 mg 10/26/19 11:51 10/26/19 12:36 Dexamethasone IVPUSH 10/26/19 11:52 8 mg ONETIME ONE Administration Lactated Ringer's 1,000 mls @ 999 mls/hr 10/26/19 10:01 10/26/19 10:17 Ringers, Lactated IV 10/26/19 11:01 999 mls/hr .BOLUS ONE Administration Pantoprazole Sodium 40 mg/ 10 mls @ 300 mls/hr 10/26/19 11:52 10/26/19 12:39 Sodium Chloride IV 10/26/19 11:53 300 mls/hr NOW ONE Administration Lactated Ringer's 1,000 mls @ 999 mls/hr 10/26/19 11:57 10/26/19 12:45 Ringers, Lactated IV 10/26/19 12:57 999 mls/hr .BOLUS ONE Administration Ketorolac Tromethamine 15 mg 10/26/19 07:58 10/26/19 08:09 Toradol IM 10/26/19 07:59 15 mg ONETIME ONE Administration Lidocaine 700 mg 10/26/19 07:58 10/26/19 08:10 Lidoderm 5% TOP 10/26/19 07:59 700 mg ONETIME ONE Administration Morphine Sulfate 4 mg 10/26/19 10:00 10/26/19 10:18 Morphine IM 10/26/19 10:01 Not Given ONETIME ONE Morphine Sulfate 4 mg 10/26/19 10:08 10/26/19 10:18 Morphine IVPUSH 10/26/19 10:09 4 mg ONETIME ONE Administration Oxycodone/Acetaminophen 2 tab 10/26/19 07:58 10/26/19 08:09 Percocet 325-5 Mg PO 10/26/19 07:59 2 tab ONETIME ONE Administration Sodium Chloride 10 ml 10/26/19 10:00 10/26/19 10:18 Saline Flush FLUSH 10 ml ASDIRECTED PRN Administration Keep Vein Open Sodium Chloride 2.5 ml 10/26/19 10:00 10/26/19 10:18 Saline Flush FLUSH 2.5 ml ASDIRECTED PRN Administration Keep Vein Open Departure - Departure Time of Disposition: 10:30 Disposition: Refer to Observation Condition: Good Clinical Impression: Low back pain with right-sided sciatica Qualifiers: Chronicity: chronic Back pain laterality: right Qualified Code(s): M54.41 - Lumbago with sciatica, right side; G89.29 - Other chronic pain - Discharge Information Sepsis Event Note (ED) - Evaluation Sepsis Screening Result: No Definite Risk - Focused Exam Vital Signs: Vital Signs Temp Pulse Resp BP Pulse Ox 10/26/19 10:15 48 L 20 102/79 99 10/26/19 07:37 35.6 C L 75 18 111/81 98 - My Orders Last 24 Hours: My Active Orders 10/26/19 10:00 Saline Lock Insert [OM.PC] Stat - Assessment/Plan Last 24 Hours: My Active Orders 10/26/19 10:00 Saline Lock Insert [OM.PC] Stat
[2019-10-26] MEDS: Morphine 2 MG/ML SYRINGE IVPUSH PRN ×2 (16:49→21:14)
[2019-10-26] MEDS: oxyCODONE 5 MG Tab PO PRN (20:19)
[2019-10-26] MEDS: Acetaminophen 325 MG Tab PO PRN (20:22)
[2019-10-27] MEDS: Acetaminophen 325 MG Tab PO PRN ×2 (01:44→06:20)
[2019-10-27] MEDS: oxyCODONE 5 MG Tab PO PRN ×2 (01:45→06:21)
[2019-10-27] MEDS: Ketorolac 15 MG/ML SDV IVPUSH SCH ×2 (01:45→08:18)
[2019-10-27] MEDS: Morphine 2 MG/ML SYRINGE IVPUSH PRN ×2 (01:46→06:22)
[2019-10-27 05:56] LABS: BLOOD UREA NITROGEN,BUN 13 mg/dL (7.0-18.0); CARBON DIOXIDE,CO2 25.3 mmol/L (21.0-32.0); CHLORIDE,CL 105 mmol/L (98-107); GLUCOSE RANDOM 127 mg/dL (74-106); POTASSIUM,K 4.2 mmol/L (3.5-5.1); SODIUM,NA 137 mmol/L (136-148)
[2019-10-27] MEDS ORDERED: Pantoprazole 40 MG Tab.CR PO SCH (07:30)
[2019-10-27] MEDS ORDERED: predniSONE 20 MG Tab PO SCH (08:00)
[2019-10-27] MEDS: Docusate Sodium 100 MG Cap PO SCH (08:17)
[2019-10-27] MEDS ORDERED: Lidocaine 5% 700 MG Patch TOP SCH (09:13)
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
[2019-10-27] MEDS: Enoxaparin 40 MG/0.4 ML Syringe SUBCUT SCH (13:04)
== END 2019-10-27 14:45 | disposition home or self-care (01) ==
LOC: MW.ED 07:21 → MW.MS 10:34
PROVIDERS: ADMIT Internal Medicine; ATTEND Internal Medicine
DX: M54.41 Lumbago with sciatica, right side (principal); G89.29 Other chronic pain; M25.80 Other specified joint disorders, unspecified joint; M51.24 Other intervertebral disc displacement, thoracic region; M51.36 Other intervertebral disc degeneration, lumbar region; M47.816 Spondylosis without myelopathy or radiculopathy, lumbar region; F17.210 Nicotine dependence, cigarettes, uncomplicated; M51.26 Other intervertebral disc displacement, lumbar region; Z20.828 Contact with and (suspected) exposure to other viral communicable diseases; Z87.828 Personal history of other (healed) physical injury and trauma
CPT/HCPCS: 36415; 80048; 85025; 87635; 96361; 96372; 96374; 96375; 96376; 97161; 99284; A9270; C9113; G0378; J1100; J1650; J1885; J2270; J7030; J7050; J7120; 99283; U0002

== ENCOUNTER 2019-12-01 14:46 | Emergency (ER) | payer MEDICAID, OTHER ==
[2019-12-01] MEDS ORDERED: Morphine 4 MG/ML Syringe IVPUSH ONE (14:52)
[2019-12-01] MEDS ORDERED: Sodium Chloride 0.9% 10 ML Syringe FLUSH PRN (14:52)
[2019-12-01] MEDS ORDERED: Sodium Chloride 0.9% 1,000 ML IV ONE ×2 (14:52→16:09)
[2019-12-01] MEDS ORDERED: Sodium Chloride 0.9% 2.5 ML Syringe FLUSH PRN (14:52)
[2019-12-01] MEDS ORDERED: Diphtheria,Pertussis(Acell),Tetanus Vaccine 0.5 ML Syringe IM ONE (14:55)
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
[2019-12-01 15:40] LABS: CARBON DIOXIDE,CO2 20.1 mmol/L (21.0-32.0); POTASSIUM,K 4.2 mmol/L (3.5-5.1)
--- NOTE | 2019-12-01 16:44 | CT ---
Head CT Technique: Multiple axial sections through the brain were obtained. Intravenous contrast not utilized. Comparison: No prior intracranial imaging is available. Findings: Ventricles along with basal cisterns and sulci over the convexities are within normal limits for the patient's age. No abnormal parenchymal densities are seen. No evidence of intracranial hemorrhage. No midline shift or mass effect is seen. Bone window settings were reviewed which shows no acute calvarial abnormality. Visualized mastoid sinuses and visualized paranasal sinuses show nothing acute. Impression: 1. Nothing acute is appreciated on noncontrast head CT exam. Diagnostic code #1 Study was dictated in MDT
--- NOTE | 2019-12-01 16:58 | CT ---
CT abdomen and pelvis Technique: Multiple axial sections were obtained from above the dome of the diaphragm inferiorly through the pubic symphysis. Intravenous contrast was utilized. No oral contrast has been given. Comparison: No prior abdominal imaging is available. Findings: Slight compressive atelectasis is noted within both posterior lungs. Liver shows a small fat next to the ligamentum teres fissure. No additional abnormality seen within the liver. Gallbladder contains no calcified gallstones. Spleen appears within normal limits. Adrenal glands appear without nodule. Pancreas shows no abnormality. Kidneys show symmetric contrast enhancement without hydronephrosis or mass. Aorta shows enhancement with no aneurysm. No retroperitoneal adenopathy or mesenteric abnormalities are seen. No pelvic mass or adenopathy is seen. Appendix is seen and is normal. Bone window settings were reviewed which shows no acute osseous finding. Soft tissue density is seen superficially posterior to the spinal muscles compatible with subcutaneous contusion. Impression: 1. Subcutaneous contusion within the posterior back. 2. No acute intra-abdominal abnormality is appreciated. Diagnostic code #2 Study was dictated in MDT
--- NOTE | 2019-12-01 16:58 | CT ---
CT cervical spine Technique: Multiple axial sections were obtained from above C1 inferiorly to the top of T3. Reconstructed sagittal and coronal images were obtained. Findings: Degenerative change is noted between the dens and anterior arch of C1. Vertebral body heights and disc spaces are maintained. Calcifications are noted posterior at C3 level compatible with ligamentum nuchal calcification. No bony central or bony neural foraminal stenosis is seen. No acute fracture or abnormal subluxation is seen. Impression: 1. Minimal degenerative change. 2. Nothing acute is appreciated on CT study of the cervical spine. Diagnostic code #1 Study was dictated in MDT
--- NOTE | 2019-12-01 17:06 | CT ---
CT chest Technique: Multiple axial sections were obtained from above the lung apices inferiorly through the lung bases. Intravenous contrast was utilized. Reconstructed coronal and sagittal images were obtained. Findings: Mediastinum and hilar regions show no adenopathy. Aorta shows no aneurysm. No axillary adenopathy seen. No pericardial thickening is seen. Slight dependent atelectasis is noted within both posterior lungs. Lungs show no acute parenchymal change. Bone window settings were reviewed which shows no acute osseous finding. Impression: 1. Nothing acute is appreciated on CT study of the chest. Diagnostic code #1 Study was dictated in MDT
[2019-12-01] MEDS ORDERED: Acetaminophen/HYDROcodone 325-5 MG Tab PO ONE ×2 (17:57→18:28)
[2019-12-01] MEDS ORDERED: Iopamidol 755 Mg/ML 100 ML Bottle IVPUSH STA (18:22)
== END 2019-12-01 19:00 | disposition home or self-care (01) ==
LOC: MW.ED 14:46
DX: S00.03XA Contusion of scalp, initial encounter (principal); N28.9 Disorder of kidney and ureter, unspecified; F17.210 Nicotine dependence, cigarettes, uncomplicated; Z88.8 Allergy status to other drugs, medicaments and biological substances; Z23 Encounter for immunization; Y00.XXXA Assault by blunt object, initial encounter
CPT/HCPCS: 36415; 70450; 71260; 72125; 74177; 80053; 81001; 85025; 90471; 90715; 96361; 96374; 99284; A9270; J2270; J7030; Q9967

== ENCOUNTER 2020-01-27 12:24 | Emergency (ER) | payer MEDICAID ==
[2020-01-27] MEDS ORDERED: Ketorolac 30 MG/ML SDV IVPUSH ONE (13:14)
[2020-01-27] MEDS ORDERED: Ondansetron 4 MG/2 ML SDV IVPUSH ONE (13:14)
[2020-01-27] MEDS ORDERED: diphenhydrAMINE 50 MG/ML SDV IVPUSH ONE (13:14)
[2020-01-27] MEDS ORDERED: Sodium Chloride 0.9% 1,000 ML IV ONE (13:14)
--- NOTE | 2020-01-27 14:17 | EDM.PDOC ---
ED HPI GENERAL MEDICAL PROBLEM - General Chief Complaint: Headache Stated Complaint: HEADACHE Time Seen by Provider: 01/27/20 12:47 Source of Information: Reports: Patient History Limitations: Reports: No Limitations - History of Present Illness INITIAL COMMENTS - FREE TEXT/NARRATIVE: Patient presents reporting headache, dry cough, body aches, chills for last day and a half. He also reports a migraine headache mostly over left eye with some phono and photophobia. He has a history of migraine headaches but has not had one for quite some time. No shortness of breath, cough, chest pain, runny nose, ear fullness, nausea, vomiting or abdominal pain. He states that he still has some dora in his back from lumbar surgery that he had 2 months ago. He never went back for a postop check. headache Pain Score (Numeric/FACES): 10 - Related Data Allergies Allergy/AdvReac Type Severity Reaction Status Date / Time cyclobenzaprine Allergy Vomiting Verified 01/27/20 13:18 [From Flexeril] Home Meds: Home Meds . [No Known Home Meds] 01/27/20 [History] Past Medical History - Past Health History Medical/Surgical History: Denies Medical/Surgical History Cardiovascular History: Reports: None Respiratory History: Reports: None Genitourinary History: Reports: None Neurological History: Reports: None Psychiatric History: Reports: None Endocrine/Metabolic History: Reports: None Hematologic History: Reports: None Immunologic History: Reports: None Oncologic (Cancer) History: Reports: None Dermatologic History: Reports: None - Infectious Disease History Infectious Disease History: Reports: None Other Infectious Disease History: IV drug use - last 2015. - Past Surgical History Head Surgeries/Procedures: Reports: None HEENT Surgical History: Reports: Adenoidectomy, Tonsillectomy Other GI Surgeries/Procedures: X2 Hernias surigcally fixed Musculoskeletal Surgical History: Reports: Knee Replacement Social & Family History - Family History Family Medical History: Noncontributory - Caffeine Use Caffeine Use: Reports: Coffee - Living Situation & Occupation Living situation: Reports: ED ROS GENERAL - Review of Systems Review Of Systems: Comprehensive ROS is negative, except as noted in HPI. - Physical Exam Exam: See Below Exam Limited By: No Limitations General Appearance: Alert, Moderate Distress (due to headache and photophobia) Ears: Normal External Exam, Normal TMs Nose: Normal Inspection Throat/Mouth: Normal Inspection, Other (Anterior posterior oropharyngeal erythema no exudates or swelling) Head Exam: Atraumatic, Normocephalic Neck: Normal Inspection, Supple, Full Range of Motion Respiratory/Chest: No Respiratory Distress, Lungs Clear, Normal Breath Sounds Cardiovascular: Normal Peripheral Pulses, Regular Rate, Rhythm, No Murmur Neuro Exam (Abbreviated): Alert, Oriented, CN II-XII Intact, No Motor/Sensory Deficits Back Exam: Other (Left lower back 3 cm well granulated scar with retained dora) Extremities: Normal Inspection Psychiatric: Normal Affect, Normal Mood Skin Exam: Warm, Dry, Intact, Normal Color, No Rash Course - Vital Signs Last Recorded V/S: Last Vital Signs Temp 35.8 C L 01/27/20 14:58 Pulse 59 L 01/27/20 14:00 Resp 17 01/27/20 14:00 BP 105/65 01/27/20 14:00 Pulse Ox 100 01/27/20 14:00 - Orders/Labs/Meds Orders: Active Orders 24 hr Category Date Time Status CORONAVIRUS COVID-19 PCR PHL Stat Lab 01/27/20 13:12 Ordered CULTURE STREP A CONFIRMATION [RM] Stat Lab 01/27/20 15:50 Results STREP SCRN A RAPID W CULT CONF [RM] Stat Lab 01/27/20 13:16 Ordered Labs: Laboratory Tests 01/27/20 01/27/20 01/27/20 Range/Units 13:23 13:40 14:05 WBC 14.83 H (4.0-11.0) K/uL RBC 5.14 (4.50-5.90) M/uL Hgb 16.4 (13.0-17.0) g/dL Hct 48.6 (38.0-50.0) % MCV 94.6 (80.0-98.0) fL MCH 31.9 (27.0-32.0) pg MCHC 33.7 (31.0-37.0) g/dL RDW Std Deviation 45.7 (28.0-62.0) fl RDW Coeff of Mig[place] 13 (11.0-15.0) % Plt Count 299 (150-400) K/uL MPV 9.50 (7.40-12.00) fL Neut % (Auto) 68.1 (48.0-80.0) % Lymph % (Auto) 21.6 (16.0-40.0) % [place] % (Auto) 7.9 (0.0-15.0) % Eos % (Auto) 2.0 (0.0-7.0) % Baso % (Auto) 0.4 (0.0-1.5) % Neut # (Auto) 10.1 H (1.4-5.7) K/uL Lymph # (Auto) 3.2 H (0.6-2.4) K/uL [place] # (Auto) 1.2 H (0.0-0.8) K/uL Eos # (Auto) 0.3 (0.0-0.7) K/uL Baso # (Auto) 0.1 (0.0-0.1) K/uL Nucleated RBC % 0.0 /100WBC Nucleated RBCs # 0 K/uL Sodium 140 (136-148) mmol/L Potassium 4.8 (3.5-5.1) mmol/L Chloride 107 (98-107) mmol/L Carbon Dioxide 29.0 (21.0-32.0) mmol/L BUN 10 (7.0-18.0) mg/dL Creatinine 1.3 (0.8-1.3) mg/dL Est Cr Clr Drug Dosing TNP Estimated GFR (MDRD) 60.0 ml/min Glucose 102 (74-106) mg/dL Calcium 8.7 (8.5-10.1) mg/dL Total Bilirubin 0.3 (0.2-1.0) mg/dL AST 20 (15-37) IU/L ALT 40 (14-63) IU/L Alkaline Phosphatase 80 (46-116) U/L Total Protein 6.0 L (6.4-8.2) g/dL Albumin 3.4 (3.4-5.0) g/dL Globulin 2.6 (2.6-4.0) g/dL Albumin/Globulin Ratio 1.3 (0.9-1.6) Urine Color Urine Appearance Urine pH (5.0-8.0) Ur Specific [place] (1.001-1.035) Urine Protein (NEGATIVE) mg/dL Urine Glucose (UA) (NEGATIVE) mg/dL Urine Ketones (NEGATIVE) mg/dL Urine Occult Blood (NEGATIVE) Urine Nitrite (NEGATIVE) Urine Bilirubin (NEGATIVE) Urine Urobilinogen (<2.0) EU/dL Ur Leukocyte Esterase (NEGATIVE) Urine RBC (0-2/HPF) Urine WBC (0-5/HPF) Ur Epithelial Cells (NONE-FEW) Urine Bacteria (NEGATIVE) SARS CoV-2 RNA Rapid SAMREEN NEGATIVE (NEGATIVE) 01/27/20 Range/Units 16:32 WBC (4.0-11.0) K/uL RBC (4.50-5.90) M/uL Hgb (13.0-17.0) g/dL Hct (38.0-50.0) % MCV (80.0-98.0) fL MCH (27.0-32.0) pg MCHC (31.0-37.0) g/dL RDW Std Deviation (28.0-62.0) fl RDW Coeff of [place] (11.0-15.0) % Plt Count (150-400) K/uL MPV (7.40-12.00) fL Neut % (Auto) (48.0-80.0) % Lymph % (Auto) (16.0-40.0) % [place] % (Auto) (0.0-15.0) % Eos % (Auto) (0.0-7.0) % Baso % (Auto) (0.0-1.5) % Neut # (Auto) (1.4-5.7) K/uL Lymph # (Auto) (0.6-2.4) K/uL [place] # (Auto) (0.0-0.8) K/uL Eos # (Auto) (0.0-0.7) K/uL Baso # (Auto) (0.0-0.1) K/uL Nucleated RBC % /100WBC Nucleated RBCs # K/uL Sodium (136-148) mmol/L Potassium (3.5-5.1) mmol/L Chloride (98-107) mmol/L Carbon Dioxide (21.0-32.0) mmol/L BUN (7.0-18.0) mg/dL Creatinine (0.8-1.3) mg/dL Est Cr Clr Drug Dosing Estimated GFR (MDRD) ml/min Glucose (74-106) mg/dL Calcium (8.5-10.1) mg/dL Total Bilirubin (0.2-1.0) mg/dL AST (15-37) IU/L ALT (14-63) IU/L Alkaline Phosphatase (46-116) U/L Total Protein (6.4-8.2) g/dL Albumin (3.4-5.0) g/dL Globulin (2.6-4.0) g/dL Albumin/Globulin Ratio (0.9-1.6) Urine Color YELLOW Urine Appearance CLEAR Urine pH 6.0 (5.0-8.0) Ur Specific [place] 1.010 (1.001-1.035) Urine Protein NEGATIVE (NEGATIVE) mg/dL Urine Glucose (UA) NEGATIVE (NEGATIVE) mg/dL Urine Ketones NEGATIVE (NEGATIVE) mg/dL Urine Occult Blood NEGATIVE (NEGATIVE) Urine Nitrite NEGATIVE (NEGATIVE) Urine Bilirubin NEGATIVE (NEGATIVE) Urine Urobilinogen 0.2 (<2.0) EU/dL Ur Leukocyte Esterase NEGATIVE (NEGATIVE) Urine RBC 0-2 (0-2/HPF) Urine WBC 0-2 (0-5/HPF) Ur Epithelial Cells RARE (NONE-FEW) Urine Bacteria RARE (NEGATIVE) SARS CoV-2 RNA Rapid SAMREEN (NEGATIVE) Meds: Medications Discontinued Medications Generic Name Dose Route Start Last Admin Trade Name Freq PRN Reason Stop Dose Admin Diphenhydramine HCl 50 mg 01/27/20 13:14 01/27/20 13:36 Benadryl IVPUSH 01/27/20 13:15 50 mg ONETIME ONE Administration Sodium Chloride 1,000 mls @ 999 mls/hr 01/27/20 13:14 01/27/20 13:33 Normal Saline IV 01/27/20 14:14 999 mls/hr .Bolus ONE Administration Ketorolac Tromethamine 30 mg 01/27/20 13:14 01/27/20 13:35 Toradol IVPUSH 01/27/20 13:15 30 mg ONETIME ONE Administration Ondansetron HCl 4 mg 01/27/20 13:14 01/27/20 13:33 Zofran IVPUSH 01/27/20 13:15 4 mg ONETIME ONE Administration - Re-Assessments/Exams Free Text/Narrative Re-Assessment/Exam: 01/27/20 17:19 States he feels much better and his symptoms have resolved. Departure - Departure Time of Disposition: 17:19 Disposition: Home, Self-Care 01 Condition: Good Clinical Impression: Viral illness Migraine Qualifiers: Migraine type: other Status migrainosus presence: without status migrainosus Intractability: not intractable Qualified Code(s): G43.809 - Other migraine, not intractable, without status migrainosus - Discharge Information *PRESCRIPTION DRUG MONITORING PROGRAM REVIEWED*: Not Applicable *COPY OF PRESCRIPTION DRUG MONITORING REPORT IN PATIENT HUONG: Not Applicable Forms: ED Department Discharge Additional Instructions: The following information is given to patients seen in the emergency department who are being discharged to home. This information is to outline your options for follow-up care. We provide all patients seen in our emergency department with a follow-up referral. The need for follow-up, as well as the timing and circumstances, are variable depending upon the specifics of your emergency department visit. If you don't have a primary care physician on staff, we will provide you with a referral. We always advise you to contact your personal physician following an emergency department visit to inform them of the circumstance of the visit and for follow-up with them and/or the need for any referrals to a consulting specialist. The emergency department will also refer you to a specialist when appropriate. This referral assures that you have the opportunity for follow-up care with a specialist. All of these measure are taken in an effort to provide you with optimal care, which includes your follow-up. Under all circumstances we always encourage you to contact your private physician who remains a resource for coordinating your care. When calling for follow-up care, please make the office aware that this follow-up is from your recent emergency room visit. If for any reason you are refused follow-up, please contact the [facility] at and asked to speak to the emergency department charge nurse. 1. [facility] [address] [place] [id number] 2. [facility] [address] [place] [address] 1. Make an appointment to establish care in primary care 2. Plenty of fluids and rest 3. Tylenol or ibuprofen as needed for body aches or fever Sepsis Event Note (ED) - Focused Exam Vital Signs: Vital Signs Temp Pulse Resp BP Pulse Ox 01/27/20 14:58 35.8 C L 01/27/20 14:00 59 L 17 105/65 100 01/27/20 13:00 70 16 121/80 99 01/27/20 12:25 35.7 C L 72 18 129/86 99 - My Orders Last 24 Hours: My Active Orders 01/27/20 13:12 CORONAVIRUS COVID-19 PCR PHL Stat 01/27/20 13:16 STREP SCRN A RAPID W CULT CONF [RM] Stat 01/27/20 15:50 CULTURE STREP A CONFIRMATION [RM] Stat - Assessment/Plan Last 24 Hours: My Active Orders 01/27/20 13:12 CORONAVIRUS COVID-19 PCR PHL Stat 01/27/20 13:16 STREP SCRN A RAPID W CULT CONF [RM] Stat 01/27/20 15:50 CULTURE STREP A CONFIRMATION [RM] Stat
[2020-01-27 14:37] LABS: BLOOD UREA NITROGEN,BUN 10 mg/dL (7.0-18.0); CHLORIDE,CL 107 mmol/L (98-107); GLUCOSE RANDOM 102 mg/dL (74-106); POTASSIUM,K 4.8 mmol/L (3.5-5.1); SODIUM,NA 140 mmol/L (136-148)
--- NOTE | 2020-01-27 15:24 | CR ---
CHEST 2 VIEWS INDICATION: Leukocytosis. IMPRESSION: Normal heart size and vascular pattern. Lungs are clear. No pneumothorax or pleural effusion. Dictated by Jones Perez MD @ Jan 27 2020 3:24PM Signed by Dr. Jones Perez @ Jan 27 2020 3:24PM
== END 2020-01-27 17:52 | disposition home or self-care (01) ==
LOC: MW.ED 12:24
DX: G43.809 Other migraine, not intractable, without status migrainosus (principal); B34.9 Viral infection, unspecified; Z20.828 Contact with and (suspected) exposure to other viral communicable diseases; Z88.1 Allergy status to other antibiotic agents
CPT/HCPCS: 36415; 71046; 80053; 81001; 85025; 87081; 87635; 87880; 96374; 96375; 99284; J1200; J1885; J2405; J7030; 99283; U0002

== ENCOUNTER 2022-11-04 16:56 | Emergency (ER) | payer SELFPAY ==
[2022-11-04] MEDS ORDERED: oxyCODONE 5 MG Tab PO ONE (17:29)
[2022-11-04] MEDS ORDERED: Acetaminophen 325 MG Tab PO ONE (17:29)
[2022-11-04] MEDS ORDERED: Ibuprofen 400 MG Tab PO ONE (17:29)
== END 2022-11-04 19:17 | disposition home or self-care (01) ==
LOC: MW.ED 16:56
DX: S46.201A Unspecified injury of muscle, fascia and tendon of other parts of biceps, right arm, initial encounter (principal); Z88.8 Allergy status to other drugs, medicaments and biological substances; W18.30XA Fall on same level, unspecified, initial encounter; Y93.67 Activity, basketball
CPT/HCPCS: 73060; 73070; 73090; 76881; 99284; A9270; 99283

== ENCOUNTER 2023-09-07 03:15 | Emergency (ER) | payer SELFPAY ==
[2023-09-07] MEDS: Lidocaine 2% Viscous Solution 15 ML UD PO ONE (03:31)
== END 2023-09-07 03:43 | disposition home or self-care (01) ==
LOC: MW.ED 03:15
DX: K08.89 Other specified disorders of teeth and supporting structures (principal); F17.210 Nicotine dependence, cigarettes, uncomplicated
CPT/HCPCS: 99283; A9270

== ENCOUNTER 2023-09-07 11:48 | Emergency (ER) | payer SELFPAY ==
[2023-09-07] MEDS: Sodium Chloride 0.9% 1,000 ML IV ONE (12:40)
[2023-09-07] MEDS: Ketorolac 30 MG/ML SDV IVPUSH ONE (12:40)
[2023-09-07] MEDS: Dexamethasone 4 MG/ML SDV IVPUSH ONE (12:40)
[2023-09-07 12:56] LABS: BASOPHILS ABSOLUTE AUTO 0.07 K/uL (0.00-0.20); BASOPHILS PERCENT AUTO 0.4 % (0.0-1.0); EOSINOPHILS ABSOLUTE AUTO 0.24 K/uL (0.00-0.45); EOSINOPHILS PERCENT AUTO 1.5 % (0.0-6.0); HEMATOCRIT 45.2 % (42.0-52.0); HEMOGLOBIN 15.5 g/dL (14.0-18.0); IMMATURE GRAN ABSOLUTE AUTO 0.13 K/uL (0.00-0.05); IMMATURE GRAN PERCENT AUTO 0.8 % (0.0-0.4); LYMPHOCYTES ABSOLUTE AUTO 3.12 K/uL (1.00-4.80); LYMPHOCYTES PERCENT AUTO 19.1 % (24.0-44.0); MEAN CORPUSCULAR HGB CONC 34.3 g/dL (32.0-36.0); MEAN CORPUSCULAR VOLUME 93.2 fL (83.0-99.0); MEAN PLATELET VOLUME 8.7 fL (9.4-12.4); MONOCYTES PERCENT AUTO 9.2 % (0.0-8.0); NEUTROPHILS ABSOLUTE AUTO 11.29 K/uL (1.80-7.70); PLATELET COUNT,PLT 342 K/uL (150-400); RED BLOOD CELL COUNT 4.85 M/uL (4.52-5.90); WHITE BLOOD CELL COUNT,WBC 16.35 K/uL (3.9-11.3)
[2023-09-07 13:26] LABS: ALBUMIN 3.5 g/dL (3.4-5.0); BILIRUBIN TOTAL 0.4 mg/dL (0.2-1.0); CALCIUM 8.5 mg/dL (8.5-10.1); CARBON DIOXIDE,CO2 26.9 mmol/L (21.0-32.0); CREATININE 1.4 mg/dL (0.8-1.3); EST CRCL DRUG DOSING (CG) 65.23 mL/min; POTASSIUM,K 3.9 mmol/L (3.5-5.1); PROTEIN TOTAL,TP 7.1 g/dL (6.4-8.2)
[2023-09-07] MEDS: Iopamidol 755 MG/ML 500 ML Multipack Bottle IVPUSH STA (14:41)
[2023-09-07] MEDS: Amoxicillin/Clavulanate K 875-125 MG Tab PO ONE (16:01)
[2023-09-07] MEDS: Acetaminophen/oxyCODONE 325-10 MG Tab PO ONE (16:01)
== END 2023-09-07 16:02 | disposition home or self-care (01) ==
LOC: MW.ED 11:48
DX: K04.7 Periapical abscess without sinus (principal); Z75.8 Other problems related to medical facilities and other health care; Z79.899 Other long term (current) drug therapy
CPT/HCPCS: 36415; 70491; 80053; 85025; 96361; 96374; 96375; 99283; A9270; J1100; J1885; J7030; Q9967; 99284